=== PATIENT | female | born 1975 | race Caucasian/White ===

== ENCOUNTER 2017-07-21 09:10 | Emergency (ER) | payer OTHER ==
[2017-07-21 09:18] VITALS: TEMP 98.7
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
[2017-07-21 11:28] VITALS: BP 136/94; PULSE 86; RESP 18; O2SAT 97
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
== END 2017-07-21 12:32 | disposition home or self-care (01) ==
LOC: ED 09:10
DX: M25.511 Pain in right shoulder (principal); M79.1 Myalgia; V49.49XA Driver injured in collision with other motor vehicles in traffic accident, initial encounter; Y92.410 Unspecified street and highway as the place of occurrence of the external cause